=== PATIENT | female | born 1995 | race Two or more races ===

== ENCOUNTER 2016-09-14 17:36 | Emergency (ER) | payer BC, OTHER ==
[2016-09-14 17:42] VITALS: BP 106/77
--- NOTE | 2016-09-14 18:03 | ER Document Report ---
ED Medical Screen (RME) - General Chief Complaint: Probable Seizure Stated Complaint: SEIZURE LIKE ACTIVITY Time Seen by Provider: 09/14/16 18:01 Notes: Patient is a 21-year-old female, past medical history psychiatric illnesses, reflux, possible seizures, pseudoseizures, presents after an episode of shaking and eyes rolling to the back of her head. The patient was interactive during the episode and felt like it was coming on. Denies loss of bowel or bladder. Follow her primary care physician 4 days ago and was referred to a neurologist, but unable to see the neurologist yet. PE: NAD. RRR. Moving all 4 extremities. I have greeted and performed a rapid initial assessment of this patient. A comprehensive ED assessment and evaluation of the patient, analysis of test results and completion of the medical decision making process will be conducted by additional ED providers. TRAVEL OUTSIDE OF THE [place] IN LAST 30 DAYS: No - Related Data Allergies/Adverse Reactions: No Known Allergies Allergy (Unverified 09/14/16 17:37) Past Medical History Renal/ Medical History: Denies: Hx Peritoneal Dialysis Physical Exam - Vital signs Vitals: Temp Pulse Resp BP Pulse Ox 97.9 F 101 H 20 106/77 100 09/14/16 17:37 09/14/16 17:37 09/14/16 17:37 09/14/16 17:37 09/14/16 17:37 Course - Vital Signs Vital signs: Temp Pulse Resp BP Pulse Ox 97.9 F 101 H 20 106/77 100 09/14/16 17:37 09/14/16 17:37 09/14/16 17:37 09/14/16 17:37 09/14/16 17:37 - Laboratory Laboratory results interpreted by me: 09/14/16 17:42 POC Glucose 127 H
[2016-09-14 18:52] LABS: ANION GAP 13 (5-19); BLOOD UREA NITROGEN 8 mg/dL (7-20); CALCIUM 9.6 mg/dL (8.4-10.2); CARBON DIOXIDE 22 mmol/L (22-30); CHLORIDE 105 mmol/L (98-107); CREATININE RESULT 0.68 mg/dL (0.52-1.25); GLUCOSE 94 mg/dL (75-110); POTASSIUM 4.3 mmol/L (3.6-5.0); SODIUM 139.8 mmol/L (137-145)
--- NOTE | 2016-09-14 19:00 | ER Document Report ---
ED General - General Chief Complaint: Probable Seizure Stated Complaint: SEIZURE LIKE ACTIVITY Time Seen by Provider: 09/14/16 18:01 Notes: Patient is a 21-year-old female, past medical history psychiatric disorders, pseudoseizures, possible seizures (not on any anti-epileptics), presents after she began to hyperventilate and and to flail her arms earlier today. This was witnessed while she was in triage and she was talking during this episode. After the incident, she said that she may feel another one coming on. She did not have loss of bowel or bladder. She was evaluated by neurology when she was in the and they found a small cyst on an MRI of her brain, but said that her symptoms are most likely from pseudoseizures. She was discharged 2 months ago from the . She is scheduled to see neurology after she saw her primary care physician for this last week. Patient denies head injury, nausea, vomiting, headache, increased stress, rash, suicidal ideation or homicidal ideation. TRAVEL OUTSIDE OF THE [place] IN LAST 30 DAYS: No - Related Data Allergies/Adverse Reactions: No Known Allergies Allergy (Unverified 09/14/16 17:37) Past Medical History - General Information source: Patient, Parent - Social History Smoking Status: Never Smoker Family History: Reviewed & Not Pertinent Patient has suicidal ideation: No Patient has homicidal ideation: No Neurological Medical History: Reports: Hx Seizures - psuedo Renal/ Medical History: Denies: Hx Peritoneal Dialysis GI Medical History: Reports: Hx Gastroesophageal Reflux Disease - Immunizations Hx Diphtheria, Pertussis, Tetanus Vaccination: Yes Review of Systems - Review of Systems Notes: REVIEW OF SYSTEMS: CONSTITUTIONAL: -fevers, -chills EENT: -eye pain, -difficulty swallowing, -nasal congestion CARDIOVASCULAR:-chest pain, -syncope. RESPIRATORY: -cough, -SOB GASTROINTESTINAL: -abdominal pain, - nausea, -vomiting, -diarrhea GENITOURINARY: -dysuria, -hematuria MUSCULOSKELETAL: -back pain, -neck pain SKIN: -rash or skin lesions. HEMATOLOGIC: -easy bruising or bleeding. LYMPHATIC: -swollen, enlarged glands. NEUROLOGICAL: -altered mental status or loss of consciousness, -headache, - neurologic symptoms PSYCHIATRIC: -anxiety, -depression. ALL OTHER SYSTEMS REVIEWED AND NEGATIVE. Physical Exam - Vital signs Vitals: Temp Pulse Resp BP Pulse Ox 97.9 F 101 H 20 106/77 100 06/27/17 17:37 09/14/16 17:37 09/14/16 17:37 09/14/16 17:37 09/14/16 17:37 - Notes Notes: PHYSICAL EXAMINATION: GENERAL: Well-appearing, well-nourished and in no acute distress. HEAD: Atraumatic, normocephalic. EYES: Pupils equal round and reactive to light, extraocular movements intact, sclera anicteric, conjunctiva are normal. ENT: nares patent, oropharynx clear without exudates. Moist mucous membranes. NECK: Normal range of motion, supple without lymphadenopathy LUNGS: Breath sounds clear to auscultation bilaterally and equal. No wheezes rales or rhonchi. HEART: Regular rate and rhythm without murmurs ABDOMEN: Soft, nontender, normoactive bowel sounds. No guarding, no rebound. No masses appreciated. EXTREMITIES: Normal range of motion, no pitting or edema. No cyanosis. NEUROLOGICAL: Cranial nerves grossly intact. Normal speech, normal gait. Normal sensory and motor exams. PSYCH: Normal mood, normal affect. SKIN: Warm, Dry, normal turgor, no rashes or lesions noted. Course - Re-evaluation Re-evalutation: Patient swelling of arms and hyperventilation are not indicative of a epileptic seizure. She was interactive during this time.. No electrolyte abnormalities. Accu-Chek normal. Instructed her to follow-up with her primary care physician and neurologist as already scheduled. Spoke to mom and patient that this activity is a stress response and is not a seizure. - Vital Signs Vital signs: Temp Pulse Resp BP Pulse Ox 97.9 F 101 H 20 106/77 100 09/14/16 17:37 09/14/16 17:37 09/14/16 17:37 09/14/16 17:37 09/14/16 17:37 - Laboratory Result Diagrams: 09/14/16 18:15 Laboratory results interpreted by me: 09/14/16 17:42 POC Glucose 127 H Discharge - Discharge Clinical Impression: Psychosomatic seizure Additional Instructions: Follow-up with your primary care physician and neurologist for further evaluation and treatment. Referrals: LEANNE BOYD MD [ACTIVE STAFF] - Follow up as needed
== END 2016-09-14 20:24 | disposition home or self-care (01) ==
LOC: ER 17:36
DX: G40.89 Other seizures (principal); K21.9 Gastro-esophageal reflux disease without esophagitis
CPT/HCPCS: 36415; 80048; 82962; 84703; 99284

== ENCOUNTER 2016-09-21 13:05 | Emergency (ER) | payer BC, OTHER ==
--- NOTE | 2016-09-21 13:30 | ER Document Report ---
ED Medical Screen (RME) - General Chief Complaint: Abscess Stated Complaint: POSSIBLE SKIN INFECTION Time Seen by Provider: 09/21/16 13:22 Notes: The patient is a 21-year-old female, past medical history prior MRSA abscesses, pseudoseizures, presents with right inner leg swelling and possible abscess. The pain is worse when she walks. She was applying warm compresses and charcoal to the wound. PE: Large fluctuant area in right inner thigh with charcoal on the skin I have greeted and performed a rapid initial assessment of this patient. A comprehensive ED assessment and evaluation of the patient, analysis of test results and completion of the medical decision making process will be conducted by additional ED providers. TRAVEL OUTSIDE OF THE [place] IN LAST 30 DAYS: No - Related Data Allergies/Adverse Reactions: No Known Allergies Allergy (Unverified 09/14/16 17:37) Past Medical History - Social History Frequency of alcohol use: None Neurological Medical History: Reports: Hx Seizures - psuedo Renal/ Medical History: Denies: Hx Peritoneal Dialysis GI Medical History: Reports: Hx Gastroesophageal Reflux Disease - Immunizations Hx Diphtheria, Pertussis, Tetanus Vaccination: Yes Physical Exam - Vital signs Vitals: Temp Pulse Resp BP Pulse Ox 98.7 F 105 H 18 135/61 H 97 09/21/16 13:15 09/21/16 13:15 09/21/16 13:15 09/21/16 13:15 09/21/16 13:15 Course - Vital Signs Vital signs: Temp Pulse Resp BP Pulse Ox 98.7 F 105 H 18 135/61 H 97 09/21/16 13:15 09/21/16 13:15 09/21/16 13:15 09/21/16 13:15 09/21/16 13:15
[2016-09-21] MEDS ORDERED: LIDOCAINE 4%/TETRACAINE 0.5%/EPI 0.18% 5 ML TOPICAL SOLN TOP ONE (14:11)
[2016-09-21] MEDS ORDERED: LIDOCAINE 1%/EPINEPHRINE INJ 20 ML VIAL INJ ONE (14:11)
[2016-09-21] MEDS ORDERED: SULFAMETHOXAZOLE/TRIMETHOPRIM 800-160 MG TABLET PO ONE (14:11)
[2016-09-21] MEDS ORDERED: LIDOCAINE 1% INJ-PF (10 MG/ML) 30 ML SDV ONE (14:25)
--- NOTE | 2016-09-21 15:19 | ER Document Report ---
ED General - General Chief Complaint: Abscess Stated Complaint: POSSIBLE SKIN INFECTION Time Seen by Provider: 09/21/16 13:22 TRAVEL OUTSIDE OF THE [place] IN LAST 30 DAYS: No - HPI Patient complains to provider of: Right thigh abscess Notes: Coming in for evaluation of right thigh abscess. Patient is ongoing for the last 3-4 days. Patient denies any IV drug use denies any fever chills nausea vomiting. Patient has a history of MRSA in the past. - Related Data Allergies/Adverse Reactions: No Known Allergies Allergy (Unverified 09/14/16 17:37) Past Medical History - Social History Smoking Status: Current Every Day Smoker Frequency of alcohol use: None Family History: Reviewed & Not Pertinent Patient has suicidal ideation: No Patient has homicidal ideation: No Neurological Medical History: Reports: Hx Seizures - psuedo Renal/ Medical History: Denies: Hx Peritoneal Dialysis GI Medical History: Reports: Hx Gastroesophageal Reflux Disease - Immunizations Hx Diphtheria, Pertussis, Tetanus Vaccination: Yes Review of Systems - Review of Systems Constitutional: No symptoms reported EENT: No symptoms reported Cardiovascular: No symptoms reported Respiratory: No symptoms reported Gastrointestinal: No symptoms reported Genitourinary: No symptoms reported Female Genitourinary: No symptoms reported Musculoskeletal: No symptoms reported Skin: Other Hematologic/Lymphatic: No symptoms reported Neurological/Psychological: No symptoms reported -: Yes All other systems reviewed and negative Physical Exam - Vital signs Vitals: Temp Pulse Resp BP Pulse Ox 98.7 F 105 H 18 135/61 H 97 09/21/16 13:15 09/21/16 13:15 09/21/16 13:15 09/21/16 13:15 09/21/16 13:15 Interpretation: Normal - General General appearance: Appears well, Alert - HEENT Head: Normocephalic, Atraumatic Eyes: Normal Pupils: PERRL - Respiratory Respiratory status: No respiratory distress Chest status: Nontender Breath sounds: Normal Chest palpation: Normal - Cardiovascular Rhythm: Regular Heart sounds: Normal auscultation Murmur: No - Abdominal Inspection: Normal Distension: No distension Bowel sounds: Normal Tenderness: Nontender Organomegaly: No organomegaly - Back Back: Normal, Nontender - Extremities General upper extremity: Normal inspection, Nontender, Normal color, Normal ROM , Normal temperature General lower extremity: Nontender, Normal color, Normal ROM, Normal temperature , Normal weight bearing. No: Normal inspection - Patient with a area of erythema with fluctuance the proximal inner thigh on the right nothing on the left. Nothing in the perineal region, Sierra's sign - Neurological Neuro grossly intact: Yes Cognition: Normal Orientation: AAOx4 Charlee Coma Scale Eye Opening: Spontaneous [place] Coma Scale Verbal: Oriented Charlee Coma Scale Motor: Obeys Commands Charlee Coma Scale Total: 15 Speech: Normal Motor strength normal: LUE, RUE, LLE, RLE Sensory: Normal - Psychological Associated symptoms: Normal affect, Normal mood - Skin Skin Temperature: Warm Skin Moisture: Dry Skin Color: Normal Course - Re-evaluation Re-evalutation: 09/21/16 15:16 He performed a stated wound culture sent patient was started on Bactrim patient was discharged on - Vital Signs Vital signs: Temp Pulse Resp BP Pulse Ox 98.7 F 105 H 18 135/61 H 97 09/21/16 13:15 09/21/16 13:15 09/21/16 13:15 09/21/16 13:15 09/21/16 13:15 Procedures - Incision and Drainage Right Leg Type: Simple Anesthetic type: 1% Lidocaine mL's of anesthetic: 3 Blade size: 11 I&D procedure: Betadine prep applied, Chlorprep applied Incision Method: Incision made by scalpel Amount/type of drainage: 2 cc of pus Notes: 09/21/16 15:17 Wound was irrigated with 30 cc normal saline flush to clear explore for loculations a skin defect was made to allow for drainage Discharge - Discharge Clinical Impression: Abscess with cellulitis Condition: Good Disposition: HOME, SELF-CARE Instructions: Abscess ([facility]), Post Incision and Drainage, Trimethoprim-Sulfa ( [facility]) Additional Instructions: Please take Tylenol Motrin for pain control please make sure you take all the antibiotic to completion. Keep wound clean Prescriptions: Sulfamethoxazole/Trimethoprim [Bactrim Ds Tablet] 1 each PO BID #20 tablet Referrals: GAYATRI BEAN DO [Primary Care Provider] - Follow up in 3-5 days
[2016-09-21 16:15] VITALS: BP 127/65
== END 2016-09-21 15:45 | disposition home or self-care (01) ==
LOC: ER 13:05
PROC: 0H9HXZZ Drainage of Right Upper Leg Skin, External Approach (ICD-10-PCS; principal; 2016-09-21)
DX: L02.415 Cutaneous abscess of right lower limb (principal); L03.115 Cellulitis of right lower limb; F17.200 Nicotine dependence, unspecified, uncomplicated; Z86.14 Personal history of Methicillin resistant Staphylococcus aureus infection
CPT/HCPCS: 10060; 99283; 87070; 87205; 87075; 87077; J3490

== ENCOUNTER 2016-11-24 08:30 | Day surgery (SDC) | payer BC, OTHER ==
[~2016-11-24 08:30] MED LIST: PROPOFOL INJ 200 MG/20 ML VIAL IV ONE
[2016-11-24 10:56] VITALS: BP 99/62
--- NOTE | 2016-11-24 18:30 | Operative Report ---
Operative Report DATE OF SURGERY: 11/24/16 Operative Report: The risks, benefits and alternatives of the procedure including risks of bleeding, perforation requiring surgery are explained to the patient detail and informed consent was obtained. The patient is brought back to the endoscopy suite and placed in the left, lateral decubital position. Timeout was called. Propofol medications administered. A rectal examination is done which did not reveal any masses, tears or fissures. An Olympus videoscope was inserted into the patient's rectum. The scope was then guided carefully all the way to the cecum. The cecum was identified by the usual anatomical landmarks including the ileocecal valve as well as the appendiceal office. Photodocumentation is obtained. The scope was then sequentially pulled back via the various segments of the colon including the ascending colon, hepatic flexure, transverse colon, splenic flexure, descending colon finding to the rectosigmoid portions of the colon. Retroflexion maneuvers performed. Prep is good. The risks benefits and alternatives of the procedure explained to the patient in detail and informed consent is obtained.A GIF Olympus video scope was inserted into the patient's mouth and hypopharynx, the esophagus is identified intubated and insufflated, the scope was then advanced through the esophagus stomach and duodenum, retroflexion maneuver is done ,the esophagus stomach and first and second portions of the duodenum examined PREOPERATIVE DIAGNOSIS: Generalized abdominal pain. Epigastric pain. Change of bowel habits. Rule out Crohn's disease POSTOPERATIVE DIAGNOSIS: Mild terminal ileitis status post biopsy. Gastritis status post biopsy rule out Helicobacter pylori OPERATION: Colonoscopy with biopsy. EGD with biopsy SURGEON: DARON ROSENBAUM ANESTHESIA: LMAC TISSUE REMOVED OR ALTERED: As noted above. COMPLICATIONS: None. ESTIMATED BLOOD LOSS: None. INTRAOPERATIVE FINDINGS: As described above. PROCEDURE: Patient tolerated the procedure well. No immediate postprocedure complications are noted. Patient discharged in good condition. Discharge date 11/24/2016. Discharge diet: Regular. Discharge activity: Regular. 2-3 week follow-up to discuss findings. Patient is instructed to call the office or proceed to the emergency room should there be any further problems or questions. We will wait and pathology.
== END 2016-11-24 10:45 | disposition home or self-care (01) ==
LOC: END 08:30
PROVIDERS: ATTEND Internal Medicine Gastroenterology
PROC: 0DB68ZX Excision of Stomach, Via Natural or Artificial Opening Endoscopic, Diagnostic (ICD-10-PCS; principal; 2016-11-24 10:30)
PROC: 0DBB8ZX Excision of Ileum, Via Natural or Artificial Opening Endoscopic, Diagnostic (ICD-10-PCS; 2016-11-24 10:30)
DX: K52.9 Noninfective gastroenteritis and colitis, unspecified (principal); K29.70 Gastritis, unspecified, without bleeding; G40.909 Epilepsy, unspecified, not intractable, without status epilepticus; M25.50 Pain in unspecified joint; K21.9 Gastro-esophageal reflux disease without esophagitis; Z86.14 Personal history of Methicillin resistant Staphylococcus aureus infection
CPT/HCPCS: 43239; 45380; 88305 ×2; J2704; 810

== ENCOUNTER 2017-01-04 18:28 | Emergency (ER) | payer BC, OTHER ==
[2017-01-04] MEDS ORDERED: ONDANSETRON 4 MG TAB.RAPDIS PO ONE (18:54)
--- NOTE | 2017-01-04 19:14 | ER Document Report ---
ED GI/ - General Chief Complaint: Vomiting Stated Complaint: VOMITING Time Seen by Provider: 01/04/17 18:43 Mode of Arrival: Ambulatory Information source: Patient Notes: 21-year-old female presents to ED for complaint of abdominal pain to the left upper quadrant as well as nausea vomiting and diarrhea since morning. She states she cannot keep anything down. She states she feels like she has a hair on her uvula which makes her throw up which is causing her abdominal pain and her diarrhea.. She states she has had this feeling in the past and no one ever sees a hair on her uvula. TRAVEL OUTSIDE OF THE [place] IN LAST 30 DAYS: No - HPI Patient complains to provider of: Abdominal pain, Diarrhea, Vomiting Onset: Just prior to arrival Timing/Duration: Intermittent Quality of pain: Cramping Severity at maximum: Moderate Severity in ED: Moderate Pain Level: 3 Location: [facility] Vaginal bleeding (Compared to normal period): None LMP: States she has the control implant and does not have a cycle Sexual history: Active Associated symptoms: Diarrhea, Nausea, Vomiting Exacerbated by: Other - Vomiting Relieved by: Denies Similar symptoms previously: Yes Recently seen / treated by doctor: No - Related Data Allergies/Adverse Reactions: No Known Allergies Allergy (Verified 01/04/17 18:33) Past Medical History - General Information source: Patient - Social History Smoking Status: Current Every Day Smoker Cigarette use (# per day): Yes - Half pack per day Smoking Education Provided: Yes - Less than 1 minute Frequency of alcohol use: Rare Drug Abuse: None Occupation: No Lives with: Family Family History: Arthritis, DM, Hyperlipidemia, Hypertension, Thyroid Disfunction. 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 Endocrine Medical History: Reports: None Renal/ Medical History: Reports: Other - Required vaginal reconstruction Malignancy Medical History: Reports: None GI Medical History: Reports: Hx Gastroesophageal Reflux Disease, Hx Colonoscopy , Hx Endoscopy Musculoskeltal Medical History: Reports Hx Arthritis - HEELS, Reports Hx Musculoskeletal Trauma Skin Medical History: Reports None Psychiatric Medical History: Reports: Hx Anxiety, Hx Depression, Hx Post Traumatic Stress Disorder Traumatic Medical History: Reports: None Infectious Medical History: Reports: None Past Surgical History: Reports: Hx Gynecologic Surgery - Vaginal reconstruction , Hx Orthopedic Surgery - The surgery - Immunizations Immunizations up to date: Yes Hx Diphtheria, Pertussis, Tetanus Vaccination: Yes Review of Systems - Review of Systems Constitutional: No symptoms reported EENT: Other - She feels like she has a hair on her uvula which makes her nauseated which causes her to vomit and diarrhea Cardiovascular: No symptoms reported Respiratory: No symptoms reported Gastrointestinal: Abdominal pain, Diarrhea, Nausea, Vomiting Genitourinary: No symptoms reported Female Genitourinary: No symptoms reported Musculoskeletal: No symptoms reported Skin: No symptoms reported Hematologic/Lymphatic: No symptoms reported Neurological/Psychological: No symptoms reported -: Yes All other systems reviewed and negative Physical Exam - Vital signs Vitals: Temp Pulse BP Pulse Ox 98.7 F 96 122/67 100 01/04/17 18:32 01/04/17 18:32 01/04/17 18:32 01/04/17 18:32 Interpretation: Normal - General General appearance: Appears well, Alert - HEENT Head: Normocephalic, Atraumatic Eyes: Normal Pupils: PERRL - Respiratory Respiratory status: No respiratory distress Chest status: Nontender Breath sounds: Normal Chest palpation: Normal - Cardiovascular Rhythm: Regular Heart sounds: Normal auscultation Murmur: No - Abdominal Inspection: Normal Distension: No distension Bowel sounds: Normal Tenderness: Tender - left upper quad Organomegaly: No organomegaly - Back Back: Normal, Nontender - Extremities General upper extremity: Normal inspection, Nontender, Normal color, Normal ROM , Normal temperature General lower extremity: Normal inspection, Nontender, Normal color, Normal ROM , Normal temperature, Normal weight bearing. No: Sierra's sign - Neurological Neuro grossly intact: Yes Cognition: Normal Orientation: AAOx4 [place] Coma Scale Eye Opening: Spontaneous [place] Coma Scale Verbal: Oriented [place] Coma Scale Motor: Obeys Commands [place] Coma Scale Total: 15 Speech: Normal Motor strength normal: LUE, RUE, LLE, RLE Sensory: Normal - Psychological Associated symptoms: Normal affect, Normal mood - Skin Skin Temperature: Warm Skin Moisture: Dry Skin Color: Normal Course - Re-evaluation Re-evalutation: 01/04/17 20:20 Patient tolerated p.o. fluids well after Zofran.. Patient is in no acute distress. Labs discussed with patient. Mother states that patient has been having diarrhea off and on for a month. Patient encouraged to agree decrease her fruit juice and sweet drinks and to use the brat diet. Patient structured to follow-up with her primary doctor and get referral to GI if diarrhea continues. - Vital Signs Vital signs: Temp Pulse Resp BP Pulse Ox 98.7 F 96 122/67 100 01/04/17 18:32 01/04/17 18:32 01/04/17 18:32 01/04/17 18:32 - Laboratory Result Diagrams: 01/04/17 19:20 01/04/17 19:20 Laboratory results interpreted by me: 01/04/17 01/04/17 01/04/17 19:00 19:20 19:20 Seg Neutrophils % 80.4 H Absolute Neutrophils 8.3 H BUN 3 L ALT 65 H Urine Protein 30 H Urine Urobilinogen 2.0 H Discharge - Discharge Clinical Impression: Nausea vomiting and diarrhea, Intermittent left upper quadrant abdominal pain Condition: Stable Disposition: HOME, SELF-CARE Additional Instructions: ABDOMINAL PAIN: There are many causes of abdominal pain. Pain can mean a serious problem requiring surgery (such as appendicitis). It can also be an innocent problem that goes away on its own (such as a viral infection). Often, time must pass to determine the cause of pain. The physician does not feel that hospitalization is necessary, at present. Things may change within the next 24 hours. Call the doctor or come back for re- examination if any problems occur, such as: (1) Pain that becomes more severe, steady, or becomes concentrated in one specific area. Also, pain that is more severe with movement or coughing. (2) Vomiting that persists or becomes more frequent. (3) Blood in the vomitus, urine, or bowel movements. Blood in the stool may have a tarry or black appearance. (4) Shaking chills or fever greater than 100 degrees F. (5) The abdomen becomes more distended or swollen. (6) Bowel movements cease. (7) Failure to improve as expected. NORMAL EXAM AND WORKUP: At this time, your examination and workup show no significant abnormality. No significant abnormal physical findings are noted. All laboratory, EKG, and imaging (x-ray, CT scans, ultrasound) studies that were ordered show no significant abnormality. Although your examination and all studies that were ordered showed no significant abnormal finding, there are no examinations and no studies that are 100% accurate. There is always the possibility that some abnormality could exist and not be detected with physical examination or within the limits and capabilities of laboratory and other studies. You should return or follow up as you were instructed on your visit today for further evaluation if your symptoms do not resolve. VOMITING: Vomiting (or nausea without vomiting) can be caused by many other different problems. It can mean that something's wrong with the stomach, such as ulcers or inflammation or the intestinal tract, such as appendicitis. But it can also be a symptom of a problem that has nothing to do with the stomach or intestines. Vomiting is common with severe headaches, earaches, tonsillitis, and kidney infections, etc. We see it with pneumonia or heart attacks. Drugs can cause nausea and vomiting. Many abdominal problems cause vomiting; for example, gallstones, kidney stones, pancreatitis, and intestinal obstruction ( blocked bowels). In most cases, curing the vomiting depends on fixing the problem that caused it. For temporary relief, we may use an anti-nausea medicine. For home use, we can prescribe suppositories, chewable pills, pills that dissolve in the mouth, or liquid anti-nausea drugs. If the vomiting seems to be caused by a problem in the stomach, acid-suppressing drugs may be prescribed as well. It's important to avoid dehydration. Sip small amounts of clear liquids ( soft drinks, tea, broth, etc) . Try to take fluids frequently even if you are vomiting to prevent dehydration. Take increasing amounts of fluid and when liquids are being consumed successfully, advance to small amounts of bland food (toast, soups, mashed potatoes, etc.) until you are able to resume a regular diet. Avoid aspirin, tobacco, and alcohol. If the vomiting worsens, if the problem that's making you vomit worsens, or if there's evidence of bleeding in the stomach (such as black, tarry stool, or bloody or black vomit), you should return immediately. Also, return if abdominal pain worsens or becomes localized to one area or you develop high fever. Call your doctor if you aren't improved in 24 hours. DIARRHEA, NON-SPECIFIC: Diarrhea means frequent, watery stools. There are many causes. Any problem that keeps the intestinal tract from absorbing water from the stool can lead to diarrhea. A sudden new diarrhea problem is usually caused by a virus, food sensitivity, toxic bacteria, or drugs. In this case, we expect the problem to go away soon. Testing is done only if you seem seriously ill from the diarrhea. If you have chronic diarrhea, or diarrhea that keeps coming back, we need to find out why. Chronic diarrhea can be due to inflammation of the bowels such as Crohn's disease or ulcerative colitis, food sensitivity such as intolerance to lactose or wheat protein, irritable bowel syndrome, and other problems. If your diarrhea is a significant problem but it's not clear why you have it, we' ll refer you to a specialist for further testing. During an episode of diarrhea, drink small amounts (two to six ounces) of clear liquids (soft drinks, sport drinks, herb teas, broth, etc). Take fluids frequently to prevent dehydration. It's usually not a problem to take mild anti- diarrhea medication such as Kaopectate or Pepto-Bismol. As the diarrhea eases, advance to small amounts of bland food (mashed potato, toast) for 24 hours. Call the physician if blood appears in your vomit or stool, if vomiting lasts longer than 24 hours, if the abdominal pain worsens or becomes localized to one area, if you develop high fever, or if you become lightheaded and weak. VIRAL SYNDROME: The physician has diagnosed a viral infection. Viruses not only cause "colds," but can cause many different symptoms including generalized aching, fever, headache, cough, diarrhea, nausea, vomiting, and fatigue. The treatment, for the most part, is simply relief of symptoms. This means that antibiotics are usually not given. Rest, fluids, pain medications and, occasionally, medication for the specific symptoms that are most bothersome will be prescribed. Use good handwashing to avoid passing the virus to others. Shared toys should be cleaned with disinfectant. Clean the toilets, sinks, and counter surfaces in bathrooms. Launder clothing in hot water. Contact the physician if you develop any new or unusual symptoms such as severe headache, stiff neck, high fever, chest pain, productive cough, or shortness of breath. You should be rechecked if you don't see marked improvement within seven to 10 days. ANTINAUSEA MEDICATION: You have been given a medication to suppress nausea and vomiting. This type of medication can be given as a shot, pill, or suppository. It will usually last for many hours. Pills and shots usually last six to eight hours. For the typical illness, only one or two doses of the medication may be necessary. Mild lightheadedness may occur. This type of medicine can cause drowsiness. Do not drive or operate dangerous machinery while under its influence. Do not mix with alcohol. See your doctor at once if you have muscle spasms or tightness, or uncontrollable motions (particularly of the neck, mouth, or jaw). Persistent vomiting or severe lightheadedness should also be evaluated by the physician. PRESCRIBED ANTIDIARRHEAL MEDICATION: Your doctor has prescribed antidiarrhea medication for you. While the usual treatment for diarrhea is a clear liquid diet to rest the bowels, an antidiarrheal medicine may allow you to be more active and comfortable while you recover. This medication can make you drowsy. Do not drive or operate machinery while under its influence. Do not combine with alcohol. Prescription antidiarrhea medicine can cause dry mouth. Occasionally, it can make you unable to pass your urine. Do not exceed the prescribed dosage. Severe abdominal pains, lightheadedness, bloody stool, or fever indicate that your disease is worsening. If these occur, stop the medication and see your doctor at once. FOLLOW-UP CARE: If you have been referred to a physician for follow-up care, call the physician s office for an appointment as you were instructed or within the next two days. If you experience worsening or a significant change in your symptoms, notify the physician immediately or return to the Emergency Department at any time for re-evaluation. Prescriptions: Promethazine HCl [Phenergan 25 mg Tablet] 25 mg PO Q6HP PRN #10 tablet PRN Reason: Loperamide HCl [Imodium 2 mg Capsule] 2 mg PO ASDIR PRN #10 cap PRN Reason: Forms: Smoking Cessation Education
[2017-01-04 19:29] LABS: ABSOLUTE EOSINOPHILS # (AUTO) 0.1 10^3/uL (0.0-0.6); ABSOLUTE LYMPHOCYTES (AUTO) 1.6 10^3/uL (0.5-4.7); ABSOLUTE MONOCYTES (AUTO) 0.4 10^3/uL (0.1-1.4); ABSOLUTE NEUT (AUTO) 8.3 10^3/uL (1.7-8.2); BASOPHILS % (AUTO) 0.3 % (0-2); EOSINOPHILS % (AUTO) 0.7 % (0-6); HEMATOCRIT 39.7 % (36.0-47.0); HEMOGLOBIN 13.7 g/dL (12.0-15.5); HGB HCT DIFFERENCE 1.4; LYMPHOCYTES % (AUTO) 15.2 % (13-45); MEAN CORPUSCULAR HEMOGLOBIN 30.3 pg (27.0-33.4); MEAN CORPUSCULAR HGB CONC 34.6 g/dL (32.0-36.0); MEAN CORPUSCULAR VOLUME 88 fl (80-97); MONOCYTES % (AUTO) 3.4 % (3-13); RED BLOOD COUNT 4.53 10^6/uL (3.72-5.28); RED CELL DISTRIBUTION WIDTH 13.1 % (11.5-14.0); SEGMENTED NEUTROPHILS % (AUTO) 80.4 % (42-78); WHITE BLOOD COUNT 10.3 10^3/uL (4.0-10.5)
[2017-01-04 19:34] LABS: APPEARANCE,URINE CLOUDY; BILIRUBIN,URINE NEGATIVE (NEGATIVE); GLUCOSE, URINE NEGATIVE (NEGATIVE); KETONES,URINE NEGATIVE (NEGATIVE); LEUKOCYTE ESTERASE,URINE NEGATIVE (NEGATIVE); NITRITE,URINE NEGATIVE (NEGATIVE); PROTEIN,URINE 30 mg/dL (NEGATIVE); URINE SPECIFIC GRAVITY 1.029
[2017-01-04 19:49] LABS: ALANINE AMINOTRANSFERASE 65 U/L (9-52); ALBUMIN 4.4 g/dL (3.5-5.0); ALKALINE PHOSPHATASE 70 U/L (38-126); ANION GAP 14 (5-19); ASPARTATE AMINO TRANSFERASE 29 U/L (14-36); BILIRUBIN,DIRECT 0.2 mg/dL (0.0-0.4); BILIRUBIN,TOTAL 0.3 mg/dL (0.2-1.3); BLOOD UREA NITROGEN 3 mg/dL (7-20); CALCIUM 9.8 mg/dL (8.4-10.2); CARBON DIOXIDE 25 mmol/L (22-30); CHLORIDE 105 mmol/L (98-107); CREATININE RESULT 0.65 mg/dL (0.52-1.25); GLUCOSE 96 mg/dL (75-110); SODIUM 143.6 mmol/L (137-145); TOTAL PROTEIN 7.5 g/dL (6.3-8.2)
[2017-01-04 20:33] VITALS: BP 112/59
== END 2017-01-04 20:33 | disposition home or self-care (01) ==
LOC: ER 18:28
DX: R11.2 Nausea with vomiting, unspecified (principal); R19.7 Diarrhea, unspecified; R10.12 Left upper quadrant pain; R09.89 Other specified symptoms and signs involving the circulatory and respiratory systems; F17.210 Nicotine dependence, cigarettes, uncomplicated; Z71.6 Tobacco abuse counseling; Z97.5 Presence of (intrauterine) contraceptive device
CPT/HCPCS: 99284; 36415; 83690; 84703; 85025; 80053; 81001; S0119

== ENCOUNTER 2019-02-25 17:50 | Emergency (ER) | payer BC, OTHER, MEDICAID ==
[2019-02-25] MEDS ORDERED: NORMAL SALINE 1000 ML 1,000 ML IV ONE (18:25)
[2019-02-25 18:52] LABS: ABSOLUTE EOSINOPHILS # (AUTO) 0.1 10^3/uL (0.0-0.6); ABSOLUTE LYMPHOCYTES (AUTO) 1.5 10^3/uL (0.5-4.7); ABSOLUTE MONOCYTES (AUTO) 0.3 10^3/uL (0.1-1.4); ABSOLUTE NEUT (AUTO) 8.1 10^3/uL (1.7-8.2); BASOPHILS % (AUTO) 0.4 % (0-2); EOSINOPHILS % (AUTO) 1.2 % (0-6); HEMATOCRIT 34.1 % (36.0-47.0); HEMOGLOBIN 11.7 g/dL (12.0-15.5); LYMPHOCYTES % (AUTO) 15.2 % (13-45); MEAN CORPUSCULAR HEMOGLOBIN 30.9 pg (27.0-33.4); MEAN CORPUSCULAR HGB CONC 34.4 g/dL (32.0-36.0); MEAN CORPUSCULAR VOLUME 90 fl (80-97); MONOCYTES % (AUTO) 3.1 % (3-13); RED BLOOD COUNT 3.79 10^6/uL (3.72-5.28); RED CELL DISTRIBUTION WIDTH 13.4 % (11.5-14.0); SEGMENTED NEUTROPHILS % (AUTO) 80.1 % (42-78); TOTAL CELLS COUNTED % (AUTO) 100 %
[2019-02-25 19:00] LABS: ALBUMIN 3.9 g/dL (3.5-5.0); ALKALINE PHOSPHATASE 81 U/L (38-126); ANION GAP 11 (5-19); ASPARTATE AMINO TRANSFERASE 49 U/L (14-36); BILIRUBIN,DIRECT 0.2 mg/dL (0.0-0.4); BILIRUBIN,TOTAL 0.3 mg/dL (0.2-1.3); BLOOD UREA NITROGEN 4 mg/dL (7-20); CARBON DIOXIDE 21 mmol/L (22-30); CHLORIDE 105 mmol/L (98-107); GLUCOSE 107 mg/dL (75-110); POTASSIUM 3.8 mmol/L (3.6-5.0)
[2019-02-25 19:04] LABS: ALCOHOL < 10 mg/dL (NONE DETECTED)
[2019-02-25 19:08] LABS: PLATELET COUNT 275 10^3/uL (150-450)
--- NOTE | 2019-02-25 19:24 | ER Document Report ---
Entered by KIERRA DIAZ SCRIBE 02/25/19 3256 Acting as scribe for:LINDY LOMBARDO IV, MD ED General - General Stated Complaint: POSSIBLE SEIZURE Primary Care Provider: GAYATRI BEAN DO [Primary Care Provider] - Follow up as needed Mode of Arrival: Ambulatory Information source: Patient Notes: This 23 year old female presents to the emergency department today with complaints of pseudoseizures. Patient states "my seizures aren't epileptic". Patient reports that she has increased anxiety now that she is . Patient states that she is unable to hold down her cymbalta now due to vomiting. TRAVEL OUTSIDE OF THE [place] IN LAST 30 DAYS: No - HPI Notes: Patient states that the "seizure activity" that she has is not true seizures. Patient denies any history of preeclampsia or eclampsia. Patient states that when she gets really anxious she has generalized shaking. 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, Reports Hx Musculoskeletal Trauma Psychiatric Medical History: Reports: Hx Anxiety, Hx Depression, Hx Post Traumatic Stress Disorder Past Surgical History: Reports: Hx Gynecologic Surgery - Vaginal reconstruction, Hx Orthopedic Surgery - The surgery - Immunizations Immunizations up to date: Yes Hx Diphtheria, Pertussis, Tetanus Vaccination: Yes Review of Systems - Review of Systems Constitutional: No symptoms reported EENT: No symptoms reported Cardiovascular: No symptoms reported Respiratory: No symptoms reported Gastrointestinal: Vomiting Genitourinary: No symptoms reported Female Genitourinary: Musculoskeletal: No symptoms reported Skin: No symptoms reported Hematologic/Lymphatic: No symptoms reported Neurological/Psychological: See HPI, Anxiety, Seizure - pseudo -: Yes All other systems reviewed and negative Physical Exam - Vital signs Vitals: Temp Pulse Resp BP Pulse Ox 98.9 F 107 H 11 L 113/63 97 02/25/19 18:24 02/25/19 18:24 02/25/19 18:24 02/25/19 18:24 02/25/19 18:24 Interpretation: Normal - General General appearance: Appears well, Alert - HEENT Head: Normocephalic, Atraumatic Eyes: Normal Pupils: PERRL - Respiratory Respiratory status: No respiratory distress Chest status: Nontender Breath sounds: Normal Chest palpation: Normal - Cardiovascular Rhythm: Regular Heart sounds: Normal auscultation Murmur: No - Abdominal Inspection: Gravid female Distension: No distension Bowel sounds: Normal Tenderness: Nontender Organomegaly: No organomegaly - Back Back: Normal, Nontender - Extremities General upper extremity: Normal inspection. No: Tender General lower extremity: Normal inspection. No: Tender - Neurological Neuro grossly intact: Yes Cognition: Normal Orientation: AAOx4 Charlee Coma Scale Eye Opening: Spontaneous Chalree Coma Scale Verbal: Oriented Charlee Coma Scale Motor: Obeys Commands Charlee Coma Scale Total: 15 Speech: Normal Motor strength normal: LUE, RUE, LLE, RLE Sensory: Normal - Psychological Associated symptoms: Normal affect, Normal mood - Skin Skin Temperature: Warm Skin Moisture: Dry Skin Color: Normal Course - Re-evaluation Re-evalutation: 02/25/19 20:38 Patient currently tolerating p.o. Patient is requesting a prescription for Phenergan suppositories so she can keep down her other medications. Results of ED MSE discussed with patient. All questions were answered prior to discharge. Emergency signs and symptoms, reasons to return to the emergency department, discussed with patient. - Vital Signs Vital signs: Temp Pulse Resp BP Pulse Ox 98.9 F 107 H 11 L 113/63 97 02/25/19 18:24 02/25/19 18:24 02/25/19 18:24 02/25/19 18:24 02/25/19 18:24 - Laboratory Result Diagrams: 02/25/19 18:06 02/25/19 18:06 Laboratory results interpreted by me: 02/25/19 02/25/19 02/25/19 18:06 18:06 19:03 Hgb 11.7 L Hct 34.1 L Seg Neutrophils % 80.1 H Carbon Dioxide 21 L BUN 4 L Creatinine 0.35 L AST 49 H Urine Ketones TRACE H Ur Leukocyte Esterase TRACE H Urine Ascorbic Acid 20 H - EKG Interpretation by Me Additional EKG results interpreted by me: 02/25/19 20:32 G performed on 02/25/2019 at 1811 hrs. was interpreted by this MD. Findings: Sinus tachycardia, rate 116, normal axis, P waves proceed QRS complexes, QRS complexes appear narrow, there are no specific ST elevation or depression patterns to suggest myocardial ischemia or infarction. Impression sinus tachycardia with nonspecific ST segments. Discharge - Discharge Clinical Impression: Anxiety as acute reaction to exceptional stress, Nausea Acute cystitis during Qualifiers: Trimester: second trimester Qualified Code(s): O23.12 - Infections of bladder in , second trimester Condition: Good Disposition: HOME, SELF-CARE Additional Instructions: Return to the Emergency Department without delay if any worse. HOME CARE INSTRUCTIONS & INFORMATION: Thank you for choosing us for your medical needs. We hope you're satisfied with the care you received. After you leave, you must properly care for your problem and, at the same time, observe its progress. Any condition can change. Some illnesses can change rapidly over hours or days. If your condition worsens, return to the Emergency Department or see your physician promptly. ABOUT YOUR X-RAYS AND EKG'S: If you had an EKG or X-rays taken, they have been read by the Emergency Physician. The X-rays and EKG's will also be read by a Radiologist or Fastener Sewing Machine Operator within 24 hours. If discrepancies are noted, you will be notified by telephone. Please be certain the ED has a correct telephone number & address where you can be reached. Also, realize that some fractures or abnormalities do not show up on initial X-rays. If your symptoms continue, see your physician. ABOUT YOUR LABORATORY TEST: If you had laboratory tests, the results have been reviewed by the Emergency Physician. Some test results (for example cultures) may not be available for several days. You will be contacted if any test result shows you need additional treatment. Please be certain the ED has a correct telephone number and address where you can be reached. ABOUT YOUR MEDICATIONS: You will receive instructions on how to take your medicine on the prescription label you receive. Additional information may be provided by the Pharmacy. If you have questions afterwards, call the ED for clarification or further instructions. Some prescribed medications may cause drowsiness. Do not perform tasks such as driving a car or operating machinery without consulting your Pharmacist. If you feel you need a refill of pain medication, your condition will need re-evaluation. Please do not call for a refill of any medication. ABOUT YOUR SIGNATURE: Signature of this document acknowledges to followin. Understanding that you received emergency treatment and that you may be released before al medical problems are known or treated. Please be certain the ED has a correct phone number & address where you can be reached. 2. Acknowledgement that you will arrange for follow-up care as recommended. 3. Authorization for the Emergency Physician to provide information to your follow-up Physician in order to maximize your care. AT ANY TIME, IF YOUR SYMPTOMS CHANGE SIGNIFICANTLY OR WORSEN OR YOU DEVELOP NEW SYMPTOMS, RETURN TO THE EMERGENCY DEPARTMENT IMMEDIATELY FOR RE-EVALUATION. OUR GOAL IS TO PROVIDE EXCELLENT MEDICAL CARE! WE HOPE THAT WE HAVE MET YOUR EXPECTATIONS DURING YOUR EMERGENCY DEPARTMENT VISIT AND THAT YOU FEEL YOU HAVE RECEIVED EXCELLENT CARE! Urinary Tract Infection Your evaluation indicates that you have a urinary tract infection. This is due to germs growing in the bladder. This is a common problem. This infection usually responds quickly to antibiotics. Your antibiotic should be taken exactly as prescribed. Drink plenty of fluids -- three to four quarts a day. Occasionally, a bladder anesthetic will be prescribed to help stop the feeling of urgency until the antibiotic has a chance to clear the infection. This may cause your urine to be dark orange. Certain urine infections require a culture. If the doctor obtained a culture, the results will be back in two days. You should call to see if a change in treatment is needed. A repeat urinalysis after you finish treatment is often recommended. The physician will let you know if further testing is required. Call the doctor if you develop fever, chills, flank pain, inability to urinate, or blood in the urine. Anxiety The physician feels that some of your health problems are being caused by anxiety. Anxiety affects your health in many ways. Anxiety alone can cause palpitations, sweats, chest pains, abdominal pains, shortness of breath, and headaches. It contributes to ulcer disease, high blood pressure, irritable bowel syndrome, and has been shown to cause flare-ups of many other diseases. Anxiety is not a simple disorder to treat. If the anxiety is due to recent life stresses, you may simply need time to "work through" the changes. If the anxiety is due to an underlying unhappiness with yourself or due to psychiatric disturbance, professional help will be needed. Your physician can refer you for further help if needed. Anti-anxiety medication is occasionally given if the stress is acute or if you are having trouble sleeping. Chronic or frequent use of these medications is not a good idea because the body becomes reliant on it, preventing you from dealing with life's normal stresses. Prescriptions: Nitrofurantoin Macrocrystal [Macrodantin] 100 mg PO BID #14 capsule Promethazine HCl [Phenergan 25 mg Supp.rect] 1 supp AK Q6H #12 supp.rect Referrals: GAYATRI BEAN DO [Primary Care Provider] - Follow up as needed I personally performed the services described in the documentation, reviewed and edited the documentation which was dictated to the scribe in my presence, and it accurately records my words and actions.
[2019-02-25 19:34] LABS: APPEARANCE,URINE CLOUDY; BILIRUBIN,URINE NEGATIVE (NEGATIVE); COLOR,URINE YELLOW; GLUCOSE, URINE NEGATIVE (NEGATIVE); KETONES,URINE TRACE mg/dL (NEGATIVE); LEUKOCYTE ESTERASE,URINE TRACE (NEGATIVE); NITRITE,URINE NEGATIVE (NEGATIVE); PROTEIN,URINE NEGATIVE (NEGATIVE); URINE SPECIFIC GRAVITY 1.012; UROBILINOGEN,URINE NEGATIVE mg/dL (<2.0)
[2019-02-25 19:49] LABS: URINE AMPHETAMINES SCREEN NEGATIVE; URINE BARBITURATES SCREEN NEGATIVE; URINE BENZODIAZEPINES SCREEN NEGATIVE; URINE COCAINE SCREEN NEGATIVE; URINE MARIJUANA (THC) SCREEN NEGATIVE; URINE METHADONE SCREEN NEGATIVE; URINE PHENCYCLIDINE SCREEN NEGATIVE
[2019-02-25 20:54] VITALS: BP 115/81
--- NOTE | 2019-02-25 23:41 | EKG REPORT ---
SEVERITY:- BORDERLINE ECG - SINUS TACHYCARDIA BORDERLINE T WAVE ABNORMALITIES : Confirmed by: Elizabeth Teixeira MD 25-Feb-2019 23:40:41
== END 2019-02-25 20:59 | disposition home or self-care (01) ==
LOC: ER 17:50
DX: G40.89 Other seizures (principal); O23.12 Infections of bladder in pregnancy, second trimester; O99.342 Other mental disorders complicating pregnancy, second trimester; F41.1 Generalized anxiety disorder; R11.10 Vomiting, unspecified
CPT/HCPCS: 93005; 99284; 96360; 36415; 82962; 80307 ×2; 83735; 85025; 80053; 81001; 93010; J7030

== ENCOUNTER 2019-05-20 18:28 | Inpatient (IN) | payer BC, OTHER, MEDICAID ==
[2019-05-20] MEDS ORDERED: DINOPROSTONE 10 MG VAGINAL INSERT.SR PV PRN (19:10)
[2019-05-20] MEDS ORDERED: RINGERS SOLUTION,LACTATED 1,000 ML IV ONE (19:15)
[2019-05-20 19:37] LABS: ABSOLUTE EOSINOPHILS # (AUTO) 0.1 10^3/uL (0.0-0.6); ABSOLUTE LYMPHOCYTES (AUTO) 1.2 10^3/uL (0.5-4.7); ABSOLUTE MONOCYTES (AUTO) 0.2 10^3/uL (0.1-1.4); ABSOLUTE NEUT (AUTO) 4.9 10^3/uL (1.7-8.2); BASOPHILS % (AUTO) 0.3 % (0-2); EOSINOPHILS % (AUTO) 0.9 % (0-6); HEMOGLOBIN 11.3 g/dL (12.0-15.5); LYMPHOCYTES % (AUTO) 18.7 % (13-45); MEAN CORPUSCULAR HEMOGLOBIN 30.7 pg (27.0-33.4); MEAN CORPUSCULAR HGB CONC 35.4 g/dL (32.0-36.0); MEAN CORPUSCULAR VOLUME 87 fl (80-97); MONOCYTES % (AUTO) 3.2 % (3-13); PLATELET COUNT 250 10^3/uL (150-450); RED BLOOD COUNT 3.68 10^6/uL (3.72-5.28); RED CELL DISTRIBUTION WIDTH 13.7 % (11.5-14.0); SEGMENTED NEUTROPHILS % (AUTO) 76.9 % (42-78); TOTAL CELLS COUNTED % (AUTO) 100 %; WHITE BLOOD COUNT 6.4 10^3/uL (4.0-10.5)
[2019-05-20 19:40] LABS: APPEARANCE,URINE CLOUDY; BILIRUBIN,URINE NEGATIVE (NEGATIVE); COLOR,URINE AMBER; GLUCOSE, URINE NEGATIVE (NEGATIVE); KETONES,URINE TRACE mg/dL (NEGATIVE); LEUKOCYTE ESTERASE,URINE TRACE (NEGATIVE); NITRITE,URINE NEGATIVE (NEGATIVE); PROTEIN,URINE 30 mg/dL (NEGATIVE)
[2019-05-20 19:54] LABS: URINE AMPHETAMINES SCREEN NEGATIVE; URINE BARBITURATES SCREEN NEGATIVE; URINE BENZODIAZEPINES SCREEN NEGATIVE; URINE COCAINE SCREEN NEGATIVE; URINE MARIJUANA (THC) SCREEN NEGATIVE; URINE METHADONE SCREEN NEGATIVE; URINE PHENCYCLIDINE SCREEN NEGATIVE
[2019-05-20] MEDS ORDERED: DINOPROSTONE 10 MG VAGINAL INSERT.SR ONE (20:20)
[2019-05-20] MEDS: RINGERS SOLUTION,LACTATED 1,000 ML IV PRN (20:26)
[2019-05-20] MEDS ORDERED: OXYTOCIN/NORMAL SALINE 20 UNIT/1,000 ML RTUINJ ONE (21:05)
[2019-05-20] MEDS ORDERED: OXYTOCIN 10 UNIT/ML VIAL ONE ×2 (21:05→21:06)
[2019-05-20] MEDS ORDERED: MISOPROSTOL 0.2 MG TABLET ONE (21:05)
[2019-05-20] MEDS ORDERED: LIDOCAINE 1% INJ-PF (10 MG/ML) 30 ML SDV ONE (21:05)
[2019-05-21] MEDS ORDERED: ZOLPIDEM TARTRATE 5 MG TABLET PO ONE (00:41)
[2019-05-21] MEDS ORDERED: ZOLPIDEM TARTRATE 5 MG TABLET ONE (00:42)
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
[2019-05-21] MEDS ORDERED: MAG HYDROX/AL HYDROX/SIMETH SUSP 30 ML UDCUP PO ONE (08:51)
[2019-05-21] MEDS ORDERED: FAMOTIDINE INJ/PF 20 MG/2 ML SDV IV ONE ×2 (08:51→09:14)
[2019-05-21] MEDS ORDERED: MAG HYDROX/AL HYDROX/SIMETH SUSP 30 ML UDCUP ONE (09:14)
[2019-05-21] MEDS ORDERED: HYDROMORPHONE HCL INJ/PF 2 MG/ML AMPULE IV ONE (09:50)
[2019-05-21] MEDS: OXYTOCIN/NORMAL SALINE 20 UNIT/1,000 ML RTUINJ IV PRN (10:08)
[2019-05-21] MEDS: RINGERS SOLUTION,LACTATED 1,000 ML IV PRN (11:44)
[2019-05-21] MEDS ORDERED: DINOPROSTONE 10 MG VAGINAL INSERT.SR ONE (19:12)
[2019-05-21] MEDS ORDERED: DINOPROSTONE 10 MG VAGINAL INSERT.SR PV ONE (19:41)
[2019-05-22] MEDS ORDERED: ACETAMINOPHEN 325 MG TABLET ONE (00:25)
[2019-05-22] MEDS ORDERED: OXYTOCIN/NORMAL SALINE 20 UNIT/1,000 ML RTUINJ ONE (08:21)
[2019-05-22] MEDS ORDERED: HYDROMORPHONE HCL INJ/PF 2 MG/ML AMPULE IV ONE ×3 (08:33→15:45)
[2019-05-22] MEDS ORDERED: HYDROMORPHONE HCL INJ/PF 2 MG/ML AMPULE ONE ×2 (08:36→09:13)
[2019-05-22] MEDS: OXYTOCIN/NORMAL SALINE 20 UNIT/1,000 ML RTUINJ IV PRN (09:30)
[2019-05-22 09:40] LABS: ABSOLUTE EOSINOPHILS # (AUTO) 0.1 10^3/uL (0.0-0.6); ABSOLUTE LYMPHOCYTES (AUTO) 1.3 10^3/uL (0.5-4.7); ABSOLUTE MONOCYTES (AUTO) 0.3 10^3/uL (0.1-1.4); ABSOLUTE NEUT (AUTO) 4.3 10^3/uL (1.7-8.2); BASOPHILS % (AUTO) 0.3 % (0-2); EOSINOPHILS % (AUTO) 1.3 % (0-6); HEMATOCRIT 31.1 % (36.0-47.0); HEMOGLOBIN 10.9 g/dL (12.0-15.5); LYMPHOCYTES % (AUTO) 22.3 % (13-45); MEAN CORPUSCULAR HEMOGLOBIN 30.6 pg (27.0-33.4); MEAN CORPUSCULAR VOLUME 88 fl (80-97); MONOCYTES % (AUTO) 4.6 % (3-13); PLATELET COUNT 232 10^3/uL (150-450); RED BLOOD COUNT 3.55 10^6/uL (3.72-5.28); RED CELL DISTRIBUTION WIDTH 13.7 % (11.5-14.0); SEGMENTED NEUTROPHILS % (AUTO) 71.5 % (42-78); TOTAL CELLS COUNTED % (AUTO) 100 %
[2019-05-22 09:48] LABS: INTERNATIONAL RATION (INR) 0.93; PROTHROMBIN TIME 12.5 SEC (11.4-15.4)
[2019-05-22 09:49] LABS: PARTIAL THROMBOPLASTIN TIME 26.6 SEC (23.5-35.8)
[2019-05-22 09:59] LABS: ALBUMIN 2.9 g/dL (3.5-5.0); ALKALINE PHOSPHATASE 268 U/L (38-126); ANION GAP 8 (5-19); ASPARTATE AMINO TRANSFERASE 59 U/L (14-36); BILIRUBIN,TOTAL 0.3 mg/dL (0.2-1.3); BLOOD UREA NITROGEN 9 mg/dL (7-20); CARBON DIOXIDE 21 mmol/L (22-30); CHLORIDE 108 mmol/L (98-107); GLUCOSE 106 mg/dL (75-110); POTASSIUM 4.3 mmol/L (3.6-5.0); TOTAL PROTEIN 5.8 g/dL (6.3-8.2)
[2019-05-22] MEDS ORDERED: PHENYLEPHRINE HCL INJ/PF 10 MG/1 ML SDV ONE (15:59)
[2019-05-22] MEDS ORDERED: BUPIVACAINE HCL 0.25 % INJ/PF (2.5 MG/1 ML) 30 ML VIAL ONE (16:00)
[2019-05-22] MEDS ORDERED: EPHEDRINE SULFATE INJ 50 MG/1 ML AMPULE ONE (16:00)
[2019-05-22] MEDS ORDERED: FENTANYL CITRATE INJ/PF 100 MCG/2 ML AMPUL ONE (16:00)
[2019-05-22] MEDS ORDERED: FENTANYL/BUPIVACAINE/NS/PF 300 MCG/150 ML RTUINJ EPI ONE (16:00)
[2019-05-22] MEDS: RINGERS SOLUTION,LACTATED 1,000 ML IV PRN (17:36)
[2019-05-22] MEDS ORDERED: HYDROXYZINE PAMOATE 50 MG CAPSULE ONE (20:09)
[2019-05-22] MEDS ORDERED: HYDROXYZINE PAMOATE 50 MG CAPSULE PO ONE (21:00)
[2019-05-23] MEDS ORDERED: OXYTOCIN/NORMAL SALINE 20 UNIT/1,000 ML RTUINJ ONE (02:32)
[2019-05-23] MEDS ORDERED: PSEUDOEPHEDRINE HCL 30 MG TABLET PO PRN (02:39)
[2019-05-23] MEDS ORDERED: BENZOCAINE/MENTHOL AEROSOL SPRAY 56 ML TOP PRN (02:39)
[2019-05-23] MEDS ORDERED: PROMETHAZINE HCL INJ 25 MG/1 ML VIAL IV PRN (02:39)
[2019-05-23] MEDS ORDERED: GLYCERIN/WITCH HAZEL LEAF 1 EACH MED..WIPE TP PRN (02:39)
[2019-05-23] MEDS ORDERED: NA PHOS,M-B/NA PHOS,DI-BA (ADULT) 133 ML ENEMA PR PRN (02:39)
[2019-05-23] MEDS ORDERED: PROMETHAZINE HCL 25 MG TABLET PO PRN (02:39)
[2019-05-23] MEDS ORDERED: OXYTOCIN/NORMAL SALINE 20 UNIT/1,000 ML RTUINJ IV PRN (02:39)
[2019-05-23] MEDS ORDERED: DIPHENHYDRAMINE HCL 25 MG CAPSULE PO PRN (02:39)
[2019-05-23] MEDS ORDERED: ZOLPIDEM TARTRATE 5 MG TABLET PO PRN (02:39)
[2019-05-23] MEDS ORDERED: MAGNESIUM HYDROXIDE SUSP 30 ML UDCUP PO PRN (02:39)
[2019-05-23] MEDS ORDERED: DIPH/PERTUSS(ACELL)/TETANUS VAC/PF 0.5 ML SYR (>=10YO) IM PRN (02:39)
[2019-05-23] MEDS ORDERED: PROMETHAZINE HCL 25 MG SUPP.RECT PR PRN (02:39)
[2019-05-23] MEDS ORDERED: ACETAMINOPHEN WITH CODEINE #3 TABLET PO PRN (02:39)
[2019-05-23] MEDS ORDERED: DIBUCAINE 1% OINTMENT 28 GM TP PRN (02:39)
[2019-05-23] MEDS ORDERED: MEASLES,MUMPS&RUBELLA VACC/PF 0.5 ML VIAL SUBCUT PRN (02:39)
--- NOTE | 2019-05-23 03:48 | Delivery Summary ---
Del Sum A-C Datetime Report Generated by CPN: 05/23/2019 03:48 DELIVERY PERSONNEL DELIVERY PERSONNEL: [id number] Delivery Doctor:: Beba Ring MD Anesthesiologist:: Bridget Sinclair MD Labor and Delivery Nurse:: Tammy Joshi RNtrimming cutter machine Nurse:: DESHAWN Norton Audio/Video Engineer/HEADING AND PRIMING TOOL SETTER: Debraher Rios, ST MATERNAL INFORMATION Delivery Anesthesia: Epidural Medications After Delivery: Pitocin Bolus-Please Comment Delivery QBL: 100 Maternal Complications: None Complication Details: iol for cholestasis Provider Comments: VMI delivered AVELINA presentation through tight nuchal cord. SHoulders and body delivered without difficulty. cord doubly clamped and cut. Infant to maternal abdomen for NRP. Placenta delivered intact but appeared somewhat velamentous type cord insertion - sent for pathology. FF at U. 1st degree perineal laceration repaired with good hemostasis. Mother and baby stable upon provider leaving the room. LABOR SUMMARY EDC: 06/09/2019 00:00 No. Babies in Womb: 1 Attempted: No Labor Anesthesia: Epidural LABOR INFORMATION Reason for Induction- Other: cholestasis Onset of Labor: 05/22/2019 23:25 Complete Dilatation: 05/23/2019 00:20 Cervical Ripening Agents: Other Oxytocin: Induction Group B Beta Strep: negative Antibiotics # of Doses: 0 Antibiotics Time of Last Dose: 0 Name of Antibiotic Given: 0 Steroids Given: None Reason Steroids Not Administered: Not Applicable MEMBRANES Membranes Rupture Method: Artificial Rupture of Membranes: 05/22/2019 23:25 Length of Rupture (hr): 2.60 Amniotic Fluid Color: Clear Amniotic Fluid Amount: Moderate Amniotic Fluid Odor: Normal STAGES OF LABOR Stage 1 hr: 0 Stage 1 min: 55 Stage 2 hr: 1 Stage 2 min: 41 Stage 3 hr: 0 Stage 3 min: 8 Total Time in Labor hr: 2 Total Time in Labor min: 44 VAGINAL DELIVERY Episiotomy: None Laceration #1: Perineal Laceration Extension #1: First Degree Laceration Repair: Yes Laceration Repair Note: 1st degree perineal laceration repaired with good hemostasis Sponge Count Correct: Yes Sharps Count Correct: Yes CSECTION DELIVERY Primary Indication: N/A Secondary Indication: N/A CSection Incidence: N/A Labor: N/A Elective: N/A CSection Incision: N/A BABY A INFORMATION Infant Delivery Date/Time: 05/23/2019 02:01 Method of Delivery: Vaginal Nurse Controlled Delivery: No Born in Route : No : N/A Forceps: N/A Vacuum Extraction: N/A Shoulder Dystocia : No PRESENTATION/POSITION BABY A Presentation: Cephalic Cephalic Presentation: Vertex Vertex Position: Right Occipital Anterior Breech Presentation: N/A PLACENTA INFORMATION BABY A Placenta Delivery Time : 05/23/2019 02:09 Placenta Method of Delivery: Expressed Placenta Status: Delivered SCORES BABY A Heart Rate 1 min: >100 bpm Resp Effort 1 min: Good Cry Reflex Irritability 1 min: Cough or Sneeze or Pulls Away Muscle Tone 1 min: Active Motion Color 1 min: Body [place], Extremities Blue Resuscitation Effort 1 min: Tactile Stimulation SCORE 1 MIN: 9 Heart Rate 5 min: >100 bpm Resp Effort 5 min: Good Cry Reflex Irritability 5 min: Cough or Sneeze or Pulls Away Muscle Tone 5 min: Active Motion Color 5 min: Body [place], Extremities Blue SCORE 5 MIN: 9 INFORMATION BABY A Gestational Age at Delivery: 37.4 Gestational Status: Early Term- 37- 38.6 Weeks Infant Outcome : Liveborn Condition : Stable Sex: Male IDENTIFICATION BABY A Infant Verification Date/Time: 05/23/2019 02:17 ID Band Number: [id number] Mother's Name Verified: Yes RN Verifying Infant: D Bellavance RN/K Zay RN WEIGHT/LENGTH BABY A Birthweight (gm): 3036 Weight (lb): 6 Infant Weight (oz): 11 Length (in): 20.50 Infant Length (cm): 52.07 CORD INFORMATION BABY A No. Cord Vessels: 3 Nuchal Cord : N/A Cord Blood Taken: Yes-For Eval (Mom's Blood Type - or O+) Suction: None ASSESSMENT BABY A Infant Complications: None Physical Findings at Delivery: Molding of the Head Infant Respirations: Appears Normal Skin to Skin: Yes Forensics Analyst/ALS Called : No Care By: S Adi RN Transferred To: Remains with Mother BABY B INFORMATION : N/A SIGNATURES Signature: with User ID: [email or web address]
[2019-05-23] MEDS ORDERED: IBUPROFEN 800 MG TABLET ONE (06:00)
[2019-05-23] MEDS: IBUPROFEN 800 MG TABLET PO SCH ×3 (06:03→21:06)
[2019-05-23] MEDS: SENNOSIDES/DOCUSATE 8.6-50 MG 1 EACH TABLET PO SCH (09:08)
[2019-05-23] MEDS: DOCUSATE SODIUM 100 MG CAPSULE PO SCH ×2 (09:08→18:00)
[2019-05-23] MEDS: PRENATAL VITAMIN W DHA CAPSULE PO SCH (09:08)
[2019-05-23] MEDS: FAMOTIDINE 20 MG TABLET PO SCH ×2 (09:08→21:06)
[2019-05-23] MEDS: FERROUS SULFATE 325 MG TABLET PO SCH ×2 (09:09→18:00)
[2019-05-23] MEDS: URSODIOL 300 MG CAPSULE PO SCH ×2 (13:36→18:00)
--- NOTE | 2019-05-23 14:12 | PDOC PROGRESS REPORT ---
Subjective-OB Progress Note for:: 05/23/19 Subjective: 23yo G1 now P1 s/p delivery day. Ambulating and voiding without difficulty. Reports pain well controlled with medication, itching continues, no concerns today Physical Exam (OB) Vital Signs: Temp Pulse Resp BP Pulse Ox 98.0 F 87 16 103/59 L 98 05/23/19 09:03 05/23/19 09:03 05/23/19 09:03 05/23/19 09:03 05/23/19 09:03 Intake & Output 05/22/19 05/23/19 05/24/19 06:59 06:59 06:59 Intake Total 47 1000 Balance 47 1000 - General General Appearance: Appears well In distress: None - PIH/Pre-Eclampsia DTR's: 1 + Clonus: Negative Headache: Absent Epigastric Pain: No Visual Changes: No - Episiotomy/Laceration Site Condition: Well Approximated - Lochia Lochia Amount: Scant < 10 ml Lochia Color: Rubra/Red - Abdomen Description: Soft Hernia Present: No Fundal Description: Firm, Midline Fundal Height: u/u - u/2 - Respiratory Respiratory Status: No respiratory distress - Extremities Upper extremity: Normal inspection Lower extremities: Normal inspection - Neurological Cognition: Normal Orientation: AAOx4 - Psychological Associated symptoms: Normal affect, Normal mood Objective-Diagnostic Laboratory: 05/22/19 09:18 05/22/19 09:18 Assessment and Plan(PN) - Assessment and Plan (1) Acute blood loss anemia Is this a current diagnosis for this admission?: Yes Plan: increase dietary iron and FeSO4 BID (2) Current every day smoker Is this a current diagnosis for this admission?: Yes Plan: cessation encouraged (3) Cholestasis during Qualifiers: Trimester: third trimester Qualified Code(s): O26.613 - Liver and biliary tract disorders in , third trimester; K83.1 - Obstruction of bile duct Is this a current diagnosis for this admission?: Yes Plan: delivered, will continue ursodiol per Dr. Ring, other comfort measures prn (4) Encounter for induction of labor Is this a current diagnosis for this admission?: Yes Plan: delivered (5) Term Is this a current diagnosis for this admission?: Yes Plan: delivered, routine pp care - Time Spent with Patient Time with patient: Less than 15 minutes Smoking Education Provided: Over 3 minutes Medications reviewed and adjusted accordingly: Yes - Disposition Anticipated Discharge: Home Within: within 48 hours
[2019-05-23] MEDS: ACETAMINOPHEN WITH CODEINE #3 TABLET PO PRN ×2 (16:19→20:50)
[2019-05-24] MEDS: IBUPROFEN 800 MG TABLET PO SCH ×3 (05:09→21:36)
[2019-05-24 08:11] LABS: HEMATOCRIT 29.1 % (36.0-47.0); HEMOGLOBIN 9.8 g/dL (12.0-15.5); MEAN CORPUSCULAR HEMOGLOBIN 29.9 pg (27.0-33.4); MEAN CORPUSCULAR HGB CONC 33.8 g/dL (32.0-36.0); MEAN CORPUSCULAR VOLUME 89 fl (80-97); PLATELET COUNT 216 10^3/uL (150-450); RED BLOOD COUNT 3.29 10^6/uL (3.72-5.28); RED CELL DISTRIBUTION WIDTH 14.3 % (11.5-14.0)
[2019-05-24] MEDS: URSODIOL 300 MG CAPSULE PO SCH ×2 (10:05→17:54)
[2019-05-24] MEDS: SENNOSIDES/DOCUSATE 8.6-50 MG 1 EACH TABLET PO SCH (10:05)
[2019-05-24] MEDS: DOCUSATE SODIUM 100 MG CAPSULE PO SCH ×2 (10:05→17:54)
[2019-05-24] MEDS: FERROUS SULFATE 325 MG TABLET PO SCH ×2 (10:05→17:54)
[2019-05-24] MEDS: FAMOTIDINE 20 MG TABLET PO SCH ×2 (10:05→21:36)
[2019-05-24] MEDS: PRENATAL VITAMIN W DHA CAPSULE PO SCH (10:05)
[2019-05-24] MEDS: ACETAMINOPHEN WITH CODEINE #3 TABLET PO PRN ×2 (10:16→18:20)
--- NOTE | 2019-05-24 10:33 | PDOC PROGRESS REPORT ---
Subjective-OB Progress Note for:: 05/24/19 Subjective: reports bleeding slowing, pain controlled with current meds. denies needs Physical Exam (OB) Vital Signs: Temp Pulse Resp BP Pulse Ox 97.8 F 60 16 136/84 H 98 05/24/19 07:36 05/24/19 07:36 05/24/19 07:36 05/24/19 07:36 05/24/19 07:36 Intake & Output 05/23/19 05/24/19 05/25/19 06:59 06:59 06:59 Intake Total 1000 400 Balance 1000 400 - Abdomen Description: Firm Hernia Present: No Fundal Description: Firm, Non-Midline Fundal Height: u/u - u/2 - Abdominal Distension: No distension Tenderness: Nontender - Extremities Lower extremities: Sierra's sign - neg Calf: Normal, Nontender Objective-Diagnostic Laboratory: 05/24/19 07:39 05/22/19 09:18 05/24/19 07:39 WBC 7.0 RBC 3.29 L Hgb 9.8 L Hct 29.1 L MCV 89 MCH 29.9 MCHC 33.8 RDW 14.3 H Plt Count 216 Assessment and Plan(PN) - Time Spent with Patient Time with patient: Less than 15 minutes - Disposition Anticipated Discharge: Home Within: within 24 hours
[2019-05-25] MEDS: ACETAMINOPHEN WITH CODEINE #3 TABLET PO PRN ×2 (02:30→11:37)
[2019-05-25] MEDS: IBUPROFEN 800 MG TABLET PO SCH (05:21)
[2019-05-25 08:25] VITALS: BP 126/75
[2019-05-25] MEDS: PRENATAL VITAMIN W DHA CAPSULE PO SCH (09:17)
[2019-05-25] MEDS: FERROUS SULFATE 325 MG TABLET PO SCH (09:17)
[2019-05-25] MEDS: FAMOTIDINE 20 MG TABLET PO SCH (09:17)
[2019-05-25] MEDS: DOCUSATE SODIUM 100 MG CAPSULE PO SCH (09:17)
[2019-05-25] MEDS: SENNOSIDES/DOCUSATE 8.6-50 MG 1 EACH TABLET PO SCH (09:17)
[2019-05-25] MEDS: URSODIOL 300 MG CAPSULE PO SCH (09:18)
--- NOTE | 2019-05-25 11:02 | PDOC PROGRESS REPORT ---
Subjective-OB Progress Note for:: 05/25/19 Subjective: Doing well, no c/o, bottle feeding, hx of depression, will start Cymbalta today, has own Rx, scant bleeding Physical Exam (OB) Vital Signs: Temp Pulse Resp BP Pulse Ox 97.7 F 69 16 126/75 H 100 05/25/19 07:18 05/25/19 07:18 05/25/19 07:18 05/25/19 07:18 05/25/19 07:18 Intake & Output 05/24/19 05/25/19 05/26/19 06:59 06:59 06:59 Intake Total 2400 Balance 2400 - PIH/Pre-Eclampsia DTR's: 1 + Clonus: Negative Headache: Absent Epigastric Pain: No Visual Changes: No - Lochia Lochia Amount: Scant < 10 ml Lochia Color: Rubra/Red - Abdomen Description: Soft, Round Hernia Present: No Fundal Description: Firm, Midline Fundal Height: u/u - u/2 Objective-Diagnostic Laboratory: 05/24/19 07:39 05/22/19 09:18 Assessment and Plan(PN) - Assessment and Plan (1) Vaginal delivery Is this a current diagnosis for this admission?: Yes (2) Acute blood loss anemia Is this a current diagnosis for this admission?: Yes (3) Cholestasis during Qualifiers: Trimester: third trimester Qualified Code(s): O26.613 - Liver and biliary tract disorders in , third trimester; K83.1 - Obstruction of bile duct Is this a current diagnosis for this admission?: Yes (4) Current every day smoker Is this a current diagnosis for this admission?: Yes (5) Encounter for induction of labor Is this a current diagnosis for this admission?: Yes (6) Term Is this a current diagnosis for this admission?: Yes - Time Spent with Patient Time with patient: Less than 15 minutes Smoking Education Provided: Over 3 minutes Medications reviewed and adjusted accordingly: Yes - Disposition Anticipated Discharge: Home Within: within 24 hours
--- NOTE | 2019-05-25 11:06 | PDOC DISCHARGE SUMMARY ---
Impression - Admit/DC Date/PCP Admission Date/Primary Care Provider: 05/20/19 18:28 GAYATRI BEAN, Discharge Date: 05/25/19 - Discharge Diagnosis (1) Vaginal delivery Is this a current diagnosis for this admission?: Yes (2) Acute blood loss anemia Is this a current diagnosis for this admission?: Yes (3) Cholestasis during Is this a current diagnosis for this admission?: Yes (4) Current every day smoker Is this a current diagnosis for this admission?: Yes (5) Encounter for induction of labor Is this a current diagnosis for this admission?: Yes (6) Term Is this a current diagnosis for this admission?: Yes - Additional Information Resuscitation Status: Full Code Discharge Diet: As Tolerated, Regular Discharge Activity: Activity As Tolerated, Pelvic Rest Referrals: [facility] [Provider Group] Home Medications: Cetirizine HCl [Zyrtec] 10 mg PO DAILY 11/23/16 Fluticasone Propionate [Flonase Allergy Relief] 9.9 ml NS DAILY 11/23/16 Duloxetine HCl [Cymbalta] 60 mg PO DAILY 05/20/19 HPI Gestational Age: 37.4 Reason(s) for Admission: Induction of Labor, Medical Complications Procedures: NST, Ultrasound Intrapartum Procedure(s): Spontaneous Vaginal Delivery Complication(s): Laceration-Perineal Laceration-Degree: 1st Hospital Course Hospital Course: routine, no complications Results Laboratory Results: WBC 7.0 10^3/uL (4.0-10.5) 05/24/19 07:39 RBC 3.29 10^6/uL (3.72-5.28) L 05/24/19 07:39 Hgb 9.8 g/dL (12.0-15.5) L 05/24/19 07:39 Hct 29.1 % (36.0-47.0) L 05/24/19 07:39 MCV 89 fl (80-97) 05/24/19 07:39 MCH 29.9 pg (27.0-33.4) 05/24/19 07:39 MCHC 33.8 g/dL (32.0-36.0) 05/24/19 07:39 RDW 14.3 % (11.5-14.0) H 05/24/19 07:39 Plt Count 216 10^3/uL (150-450) 05/24/19 07:39 Lymph % (Auto) 22.3 % (13-45) 05/22/19 09:18 [place] % (Auto) 4.6 % (3-13) 05/22/19 09:18 Eos % (Auto) 1.3 % (0-6) 05/22/19 09:18 Baso % (Auto) 0.3 % (0-2) 05/22/19 09:18 Absolute Neuts (auto) 4.3 10^3/uL (1.7-8.2) 05/22/19 09:18 Absolute Lymphs (auto) 1.3 10^3/uL (0.5-4.7) 05/22/19 09:18 Absolute Monos (auto) 0.3 10^3/uL (0.1-1.4) 05/22/19 09:18 Absolute Eos (auto) 0.1 10^3/uL (0.0-0.6) 05/22/19 09:18 Absolute Basos (auto) 0.0 10^3/uL (0.0-0.2) 05/22/19 09:18 Seg Neutrophils % 71.5 % (42-78) 05/22/19 09:18 PT 12.5 SEC (11.4-15.4) 05/22/19 09:18 INR 0.93 05/22/19 09:18 APTT 26.6 SEC (23.5-35.8) 05/22/19 09:18 Sodium 136.5 mmol/L (137-145) L 05/22/19 09:18 Potassium 4.3 mmol/L (3.6-5.0) 05/22/19 09:18 Chloride 108 mmol/L (98-107) H 05/22/19 09:18 Carbon Dioxide 21 mmol/L (22-30) L 05/22/19 09:18 Anion Gap 8 (5-19) 05/22/19 09:18 BUN 9 mg/dL (7-20) 05/22/19 09:18 Creatinine 0.50 mg/dL (0.52-1.25) L 05/22/19 09:18 Est GFR ( Amer) > 60 (>60) 05/22/19 09:18 Est GFR (MDRD) Non-Af > 60 (>60) 05/22/19 09:18 Glucose 106 mg/dL (75-110) 05/22/19 09:18 Calcium 9.0 mg/dL (8.4-10.2) 05/22/19 09:18 Total Bilirubin 0.3 mg/dL (0.2-1.3) 05/22/19 09:18 Direct Bilirubin 0.0 mg/dL (0.0-0.4) 05/22/19 09:18 Neonat Total Bilirubin Not Reportable 05/22/19 09:18 Neonat Direct Bilirubin Not Reportable 05/22/19 09:18 Neonat Indirect Bili Not Reportable 05/22/19 09:18 AST 59 U/L (14-36) H 05/22/19 09:18 ALT 82 U/L (<35) H 05/22/19 09:18 Alkaline Phosphatase 268 U/L (38-126) H 05/22/19 09:18 Total Protein 5.8 g/dL (6.3-8.2) L 05/22/19 09:18 Albumin 2.9 g/dL (3.5-5.0) L 05/22/19 09:18 Urine Color FATUMA 05/20/19 19:00 Urine Appearance CLOUDY 05/20/19 19:00 Urine pH 6.0 (5.0-9.0) 05/20/19 19:00 Ur Specific Gallant 1.020 05/20/19 19:00 Urine Protein 30 mg/dL (NEGATIVE) H 05/20/19 19:00 Urine Glucose (UA) NEGATIVE mg/dL (NEGATIVE) 05/20/19 19:00 Urine Ketones TRACE mg/dL (NEGATIVE) H 05/20/19 19:00 Urine Blood NEGATIVE (NEGATIVE) 05/20/19 19:00 Urine Nitrite NEGATIVE (NEGATIVE) 05/20/19 19:00 Urine Bilirubin NEGATIVE (NEGATIVE) 05/20/19 19:00 Urine Urobilinogen 4.0 mg/dL (<2.0) H 05/20/19 19:00 Ur Leukocyte Esterase TRACE (NEGATIVE) H 05/20/19 19:00 Urine Ascorbic Acid 40 (NEGATIVE) H 05/20/19 19:00 Urine Opiates Screen NEGATIVE 05/20/19 19:00 Urine Methadone Screen NEGATIVE 05/20/19 19:00 Ur Barbiturates Screen NEGATIVE 05/20/19 19:00 Ur Phencyclidine Scrn NEGATIVE 05/20/19 19:00 Ur Amphetamines Screen NEGATIVE 05/20/19 19:00 U Benzodiazepines Scrn NEGATIVE 05/20/19 19:00 Urine Cocaine Screen NEGATIVE 05/20/19 19:00 U Marijuana (THC) Screen NEGATIVE 05/20/19 19:00 RPR NONREACTIVE (NONREACTIVE) 05/20/19 19:20 Blood Type A NEGATIVE 05/20/19 19:20 Antibody Screen NEGATIVE 05/20/19 19:20 Plan Health Concerns: routine, PP depression Plan of Treatment: routine PP Goals: PP routine, start Cymbalta, Hx of depression Time Spent: Less than 30 Minutes
== END 2019-05-25 13:05 | disposition home or self-care (01) | DRG 805 ==
LOC: LR 18:28 → 2S 05-23 08:35
PROVIDERS: ADMIT Student in an Organized Health Care Education/Training Program; ATTEND Student in an Organized Health Care Education/Training Program
PROC: 10E0XZZ Delivery of Products of Conception, External Approach (ICD-10-PCS; principal; 2019-05-23)
DX: O26.893 Other specified pregnancy related conditions, third trimester (principal); K83.1 Obstruction of bile duct; Z37.0 Single live birth; O69.1XX0 Labor and delivery complicated by cord around neck, with compression, not applicable or unspecified; O26.62 Liver and biliary tract disorders in childbirth; O99.334 Smoking (tobacco) complicating childbirth; F17.210 Nicotine dependence, cigarettes, uncomplicated; O70.0 First degree perineal laceration during delivery; Z67.11 Type A blood, Rh negative; Z3A.37 37 weeks gestation of pregnancy
CPT/HCPCS: 36415; 80053; 80307; 81005; 85025; 85027; 85610; 85730; 86592; 86850; 86900; 86901; 88307; 94760; J1170; J2370; J2590; J3010; J3490; S0028